=== PATIENT | male | born 1950 | race Caucasian/White ===

== ENCOUNTER 2025-07-28 06:58 | Outpatient (CLI) | payer MEDICARE, SELFPAY ==
--- NOTE | ~2025-07-28 | PE_ITS ---
EXAMINATION: PET_PETPSMAST_PT DATE: 07/28/2025 10:10 INDICATION: Prostate cancer TECHNIQUE: 3.764 mCi of Illucix Ga-[id number]) was administered i.v. Low dose computed tomography (CT) images were acquired from the base of the brain to the base of the brain to the proximal thighs for attenuation correction and anatomic localization. Positron emission tomography (PET) images were acquired in the same distribution beginning 74 minutes after injection. Images including fused PET/CT images were reconstructed in axial, coronal, and sagittal planes. Automated exposure control technique was employed. The dose-length product was 1127.81mGy-cm. COMPARISON: CT abdomen and pelvis dated 01/17/2019 FINDINGS: Head/neck: Typical pattern of symmetric physiologic increased activity in the lacrimal, parotid and submandibular glands as well as along the mucosa of the nasal and oral cavities, pharynx and hypopharynx. No pathologically enlarged cervical lymphadenopathy or suspicious foci of increased uptake in the visualized head or neck. Chest: No interval change since 2019 in a 5-6 mm left lower lobe nodule. There are few additional scattered <4 mm pulmonary nodules in both lungs which are without abnormal uptake and a few of which appear calcified sequela of old granulomatous disease. No pneumonia, pulmonary edema or other pulmonary infiltrates. No pleural effusion. Heart size normal with atherosclerotic coronary calcium location. No pericardial effusion. Thoracic aorta is normal in caliber. No pathologically enlarged or PSMA avid thoracic lymphadenopathy. Abdomen/pelvis/proximal thighs: Physiologic renal accumulation and excretion of activity in the kidneys, bladder and along portions of ureters. Prostatomegaly measuring 4.5 x 4.0 cm with couple foci of increased uptake at the left posterior and mid posterior aspect of the prostate with maximal SUV values of 9.2 and 12.5 respectively consistent with primary prostate cancer. Normal degree and slightly heterogenous pattern of increased uptake throughout the liver and spleen without radiologic correlate or dominant PSMA avid lesion. Multiple small calcified gallstones within the dependent aspect of the normal-appearing gallbladder. Pancreas and bilateral adrenal glands are normal. Moderate uptake scattered throughout the bowels with typical duodenal and proximal jejunal predominance and without radiologic correlate, also likely physiologic. No other abnormal foci of increased uptake or pathologically enlarged lymphadenopathy in the abdomen, pelvis or proximal thighs. Musculoskeletal: Moderate cervical and mild thoracic and lumbar spondylosis. No suspicious lytic, blastic or abnormally PSMA avid bone lesions. IMPRESSION: 1. Couple foci of increased uptake in the posterior aspect of the enlarged prostate consistent with primary prostate cancer. No evident metastatic disease. 2. Cholelithiasis. Reviewed, dictated and finalized at location A. IMPRESSION: 1. Couple foci of increased uptake in the posterior aspect of the enlarged pros hinkle consistent with primary prostate cancer. No evident metastatic disease. 2. Cholelithiasis.
== END 2025-07-28 06:59 | disposition home or self-care (01) ==
PROVIDERS: PCP Internal Medicine; Visit Provider Urology
DX: C61 Malignant neoplasm of prostate (principal); K80.20 Calculus of gallbladder without cholecystitis without obstruction
CPT/HCPCS: 78815; A9596